=== PATIENT | female | born 1935 | race Caucasian/White ===

== ENCOUNTER → 2016-03-23 | Outpatient (REF) | payer MEDICARE, OTHER ==
[~2016-03-23] MED LIST: ADV250INH INH; AMLO10TA2 PO; BENI40TA3 PO; BUME1TAB26 PO; COMBAER6 INH; METH10TA PO; METO50TA2 PO; OMEP40CA2 PO; PROA1AER INH; VITA-112 PO; [UNRECOGNIZED DRUG - CODE] EXT
[2016-03-23 19:18] LABS: FREE T4 1.38 NG/DL (0.76-1.46)
== END | disposition home or self-care (01) ==
LOC: M SFHCCLAY 06:37
PROVIDERS: ATTEND Family Medicine
DX: E05.90 Thyrotoxicosis, unspecified without thyrotoxic crisis or storm (principal); R63.4 Abnormal weight loss; J44.9 Chronic obstructive pulmonary disease, unspecified

== ENCOUNTER → 2016-04-01 | Outpatient (CLI) | payer MEDICARE, BC ==
--- NOTE | 2016-04-01 19:54 | REP ---
Whole body PET CT scan: Comparison is the chest CT dated 01/31/2016. Whole body PET CT scanning is performed from skull base to the upper thighs. Neck and supraclavicular areas: There are two small uptake foci just inferior to the occiput bilaterally. On the accompanying CT this appears to be artifactual uptake in paravertebral musculature. There is artifactual uptake in the adenoids bilaterally. There is a 2 cm nodule in the right lobe of the thyroid demonstrating hypermetabolic uptake with the standard uptake value measuring 5.0. There is no uptake in the left lobe of the thyroid. Chest: There is hypermetabolic uptake in the patient's known right upper lobe lung mass, the standard uptake value measures 5.9, compatible with neoplasm. There is hypermetabolic uptake in a normal size right hilar lymph node posterior to the right hilus. The standard uptake value measures 4.1, compatible with neoplasm. The lymph node measures 1.3 cm diameter. There is hypermetabolic uptake in a 1 cm nodule medially in the left lower lobe, the standard uptake value measures 6.3, compatible with neoplasm. There is hypermetabolic uptake in a small 5 mm nodule in the left upper lobe, the standard uptake value measuring 2.8, borderline hypermetabolic, likely artifactually low because of a small lesion size. No other hypermetabolic foci are identified in the chest. Abdomen, pelvis and upper thighs: There are no hypermetabolic foci. Artifactual bowel uptake is incidentally noted. The study is performed with 7.8 mCi of F 18 FDG . Signed by Gal Byrnes MD 04/01/2016 07:45 P
== END | disposition home or self-care (01) ==
LOC: M RAD 15:08
PROVIDERS: ATTEND Internal Medicine Pulmonary Disease
DX: C34.11 Malignant neoplasm of upper lobe, right bronchus or lung (principal); R93.8 Abnormal findings on diagnostic imaging of other specified body structures
CPT/HCPCS: 78815; A9552

== ENCOUNTER → 2016-04-22 | Outpatient (REF) | payer MEDICARE, BC | END | disposition home or self-care (01) | LOC: M LAB REF 07:15 | PROVIDERS: ATTEND Internal Medicine Medical Oncology | DX: C34.91 Malignant neoplasm of unspecified part of right bronchus or lung (principal) ==

== ENCOUNTER → 2016-06-03 | Outpatient (REF) | payer MEDICARE, OTHER ==
[2016-06-03 17:16] LABS: FREE T4 1.11 NG/DL (0.76-1.46)
== END ==
LOC: M SFHCCLAY 10:05
PROVIDERS: ATTEND Family Medicine
DX: E05.90 Thyrotoxicosis, unspecified without thyrotoxic crisis or storm (principal)

== ENCOUNTER → 2016-11-04 | Outpatient (CLI) | payer MEDICARE, OTHER ==
[~2016-11-04] MED LIST changes: +BENI40TA26 PO; -BENI40TA3 PO; -METO50TA2 PO; +METO50TA7 PO; -PROA1AER INH; +PROAAER10 INH
--- NOTE | 2016-11-04 11:48 | REP ---
CHEST, TWO VIEWS: Two views of the chest are performed and compared to prior studies most recent of which is 03/10/2016. There is mild enlargement of a right upper lobe nodule at the level of the hilum. A new 4 cm nodule is seen in the left upper lobe just above the level of the hilum. There also appears to be a new nodule in the left retrocardiac region measuring 3.7 cm in diameter. There is mild cardiomegaly. There is calcification and tortuosity of the thoracic aorta. There are degenerative changes of the spine. IMPRESSION: Increased size of right upper lobe nodule. Two new left lung nodules.
== END ==
LOC: M CLY 10:31
PROVIDERS: ATTEND Family Medicine
DX: C34.91 Malignant neoplasm of unspecified part of right bronchus or lung (principal); J44.9 Chronic obstructive pulmonary disease, unspecified

== ENCOUNTER → 2016-11-04 | Outpatient (REF) | payer MEDICARE, BC, OTHER ==
[2016-11-04 18:34] LABS: MEAN CORPUSCULAR HEMOGLOBIN 33.4 pg (27.0-33.0); MEAN CORPUSCULAR HGB CONC 33.3 g/dl (32.0-36.5); MEAN CORPUSCULAR VOLUME 100.2 fl (80.0-96.0); RED CELL DISTRIBUTION WIDTH 13.4 % (11.5-14.5); WHITE BLOOD COUNT 9.2 K/mm3 (4.0-10.0)
[2016-11-04 19:17] LABS: ALBUMIN 3.5 GM/DL (3.2-5.2); ALBUMIN/GLOBULIN RATIO 1.06 (1.00-1.93); ALKALINE PHOSPHATASE 75 U/L (45-117); ALT/SGPT 10 U/L (12-78); ANION GAP 5 MEQ/L (8-16); AST/SGOT 16 U/L (15-37); BILIRUBIN,TOTAL 0.7 MG/DL (0.2-1.0); BLOOD UREA NITROGEN 7 MG/DL (7-18); CALCIUM LEVEL 9.9 MG/DL (8.8-10.2); CARBON DIOXIDE LEVEL 40 MEQ/L (21-32); CHLORIDE LEVEL 92 MEQ/L (98-107); CREATININE FOR GFR 0.77 MG/DL (0.55-1.02); FREE T4 0.91 NG/DL (0.76-1.46); GLOMERULAR FILTRATION RATE > 60.0 (>32); GLUCOSE, FASTING 104 MG/DL (83-110); POTASSIUM SERUM 3.6 MEQ/L (3.5-5.1); SODIUM LEVEL 137 MEQ/L (136-145); TOTAL PROTEIN 6.8 GM/DL (6.4-8.2)
== END ==
LOC: EDBD → M SFHCCLAY 10:11
PROVIDERS: ATTEND Family Medicine
DX: C34.91 Malignant neoplasm of unspecified part of right bronchus or lung (principal); J44.9 Chronic obstructive pulmonary disease, unspecified; E05.90 Thyrotoxicosis, unspecified without thyrotoxic crisis or storm
CPT/HCPCS: 71020; 80053; 84439; 84443; 85027; G0463

== ENCOUNTER → 2017-02-10 | Outpatient (CLI) | payer MEDICARE, OTHER ==
[~2017-02-10] MED LIST changes: +AMIL5TA PO; +FURO40TA2 PO; +IPRASOL4 INH; +K-TA10TA2 PO; +LASI40TA PO; +OLME20TA2 PO; +POTA20TA PO; +TAPA5TAB PO; +VITA100066 PO
--- NOTE | 2017-02-10 13:42 | REP ---
Clinical: Dyspnea. Tachycardia. Lung cancer. Technique: PA and lateral. Comparison: 11/04/2016. Findings: Mediastinum and cardiac silhouette are stable. Diffuse chronic interstitial changes are again identified along with bilateral mid lung opacities similar to prior examination and consistent with a history of lung cancer. Superimposed basilar atelectasis (left greater than right) cannot be excluded. Small effusion cannot be excluded. No pneumothorax. Skeletal structures demonstrate age-related degenerative changes. Impression: Diffuse chronic interstitial changes and stable opacities/masses. Superimposed lower lobe atelectasis cannot be excluded. Signed by Rick Davila MD 02/10/2017 01:33 P
== END ==
LOC: EDBD → M CLY 12:50 → MERGE 12:50
PROVIDERS: ATTEND Nurse Practitioner Family
DX: R00.0 Tachycardia, unspecified (principal); R06.09 Other forms of dyspnea; J98.4 Other disorders of lung

== ENCOUNTER → 2017-02-10 | Outpatient (REF) | payer MEDICARE, OTHER ==
[~2017-02-10] MED LIST changes: -FURO40TA2 PO; -IPRASOL4 INH; -OLME20TA2 PO; -POTA20TA PO; -TAPA5TAB PO; -VITA100066 PO
[2017-02-10 19:55] LABS: BASO # 0.1 10^3/uL (0.0-0.2); BASO % 0.8 % (0.0-1.0); EOS # 0.1 10^3/uL (0.0-0.50); EOS % 1.3 % (0.0-3.0); IMMATURE GRANULOCYTE % 0.3 % (0-0); LYMPH % 11.9 % (24.0-44.0); MEAN CORPUSCULAR HEMOGLOBIN 31.5 pg (27.0-33.0); MEAN CORPUSCULAR HGB CONC 32.6 g/dl (32.0-36.5); MEAN CORPUSCULAR VOLUME 96.7 fl (80.0-96.0); MONO # 0.5 10^3/uL (0.0-0.8); MONO % 6.1 % (0.0-5.0); NEUTROPHILS # 6.4 10^3/uL (1.8-7.7); NEUTROPHILS % 79.6 % (36.0-66.0); PLATELET COUNT, AUTOMATED 486 10^3/uL (150-450); RED CELL DISTRIBUTION WIDTH 13.8 % (11.5-14.5)
[2017-02-10 20:11] LABS: ANION GAP 7 MEQ/L (8-16); BLOOD UREA NITROGEN 9 MG/DL (7-18); CALCIUM LEVEL 9.4 MG/DL (8.8-10.2); CARBON DIOXIDE LEVEL 41 MEQ/L (21-32); CHLORIDE LEVEL 90 MEQ/L (98-107); GLOMERULAR FILTRATION RATE > 60.0 (>32); GLUCOSE, FASTING 119 MG/DL (83-110); SODIUM LEVEL 138 MEQ/L (136-145)
== END ==
LOC: EDBD → M SFHCCLAY 10:36 → MERGE 10:36
PROVIDERS: ATTEND Nurse Practitioner Family
DX: R00.0 Tachycardia, unspecified (principal); R06.09 Other forms of dyspnea; R60.0 Localized edema

== ENCOUNTER 2017-02-12 02:19 | Inpatient (IN) | payer MEDICARE, BC, OTHER ==
[~2017-02-12] VITALS: Ht 152.4 cm; Wt 44.0 kg
[~2017-02-12 02:19] MED LIST changes: -AMIL5TA PO; -K-TA10TA2 PO; -LASI40TA PO
[2017-02-12] MEDS ORDERED: K-TA10TA2 PO (02:37)
[2017-02-12] MEDS ORDERED: LASI40TA PO (02:37)
[2017-02-12] MEDS ORDERED: AMIL5TA PO ×2 (02:37→06:42)
[2017-02-12 03:02] LABS: BASO # 0.1 10^3/uL (0.0-0.2); BASO % 0.7 % (0.0-1.0); EOS # 0.3 10^3/uL (0.0-0.50); EOS % 3.7 % (0.0-3.0); IMMATURE GRANULOCYTE % 0.4 % (0-0); LYMPH # 1.1 10^3/uL (1.5-4.5); LYMPH % 13.3 % (24.0-44.0); MEAN CORPUSCULAR HGB CONC 33.6 g/dl (32.0-36.5); MEAN CORPUSCULAR VOLUME 95.4 fl (80.0-96.0); MONO # 0.6 10^3/uL (0.0-0.8); MONO % 6.6 % (0.0-5.0); NEUTROPHILS # 6.4 10^3/uL (1.8-7.7); NEUTROPHILS % 75.3 % (36.0-66.0); PLATELET COUNT, AUTOMATED 411 10^3/uL (150-450); RED CELL DISTRIBUTION WIDTH 14.1 % (11.5-14.5); WHITE BLOOD COUNT 8.5 10^3/uL (4.0-10.0)
[2017-02-12 03:11] LABS: ANION GAP 7 MEQ/L (8-16); BLOOD UREA NITROGEN 9 MG/DL (7-18); CALCIUM LEVEL 8.9 MG/DL (8.8-10.2); CARBON DIOXIDE LEVEL 39 MEQ/L (21-32); CHLORIDE LEVEL 90 MEQ/L (98-107); CREATININE FOR GFR 0.61 MG/DL (0.55-1.02); GLOMERULAR FILTRATION RATE > 60.0 (>32); GLUCOSE, FASTING 102 MG/DL (83-110); POTASSIUM SERUM 3.4 MEQ/L (3.5-5.1); SODIUM LEVEL 136 MEQ/L (136-145)
[2017-02-12 03:18] LABS: ABG BASE EXCESS 15.1 (-2.0-2.0); ABG HCO3 40.5 MEQ/L (22.0-26.0); ABG PARTIAL PRESSURE CO2 54.3 mmHg (35.0-45.0); ABG PARTIAL PRESSURE O2 61.5 mmHg (75.0-100.0); ABG STANDARD HCO3 38.8 MEQ/L (22.0-26.0); ABG TOTAL CO2 42.1 MEQ/L (23.0-31.0)
[2017-02-12] MEDS ORDERED: methylPREDNISolone INJ 125 MG/2 ML VIAL (J2930) IV ONE (03:30)
[2017-02-12] MEDS ORDERED: ISOVUE-370 76% 100ML VIAL (Q9967) As Ordered ONE (03:38)
[2017-02-12] MEDS ORDERED: FUROSEMIDE 40 MG/4 ML VIAL (J1940) IV ONE (04:45)
[2017-02-12 04:48] LABS: ALKALINE PHOSPHATASE 83 U/L (45-117); ALT/SGPT 10 U/L (12-78); AST/SGOT 12 U/L (7-37); BILIRUBIN,DIRECT 0.1 MG/DL (0.0-0.2); BILIRUBIN,TOTAL 0.4 MG/DL (0.2-1.0)
[2017-02-12 04:49] LABS: ALBUMIN 2.8 GM/DL (3.2-5.2); ALBUMIN/GLOBULIN RATIO 0.85 (1.00-1.93); TOTAL PROTEIN 6.1 GM/DL (6.4-8.2)
--- NOTE | 2017-02-12 04:50 | REPUSA ---
CLINICAL HISTORY: Dyspnea, exclude PE. TECHNIQUE: Multiple incremental axial, coronal and oblique images are obtained from the thoracic inle t to the upper abdomen. Intravenous contrast material was administered as per pulmonary embolism prot ocol. COMMENTS: Small left pleural effusion. Passive atelectatic airspace disease in the left lower lobe. Minimal right pleural effusion. Right upper lobe mass measuring 3.8x3.9 cm. Left upper lobe mass measuring 4.5x4.1 cm. Left lower lobe mass measuring 5.3x4.7 cm. Emphysema. 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 Scattered emphysematous blebs. Mildly enlarged mediastinal and hilar lymph nodes with the largest measuring 1.6 cm. Mild hepatomegaly without tracheal deviation/airway narrowing. Mild cardiomegaly. 4.5 cm well-defined hypodense lesion of the spleen. Mild hepatomegaly. There is excellent opacification of pulmonary arterial system without evidence for pulmonary embolism . Aorta is of normal caliber without evidence for dissection or aneurysm. Images of the upper abdomen demonstrate no evidence of adrenal mass. The bony structures are free of lytic or blastic lesions. Multilevel degenerative changes are seen in volving the visualized thoracolumbar spine. Scattered calcifications are seen involving the aorta and major branches compatible with atherosclero sis. IMPRESSION: No evidence for pulmonary embolism. Cardiomegaly. Bilateral pulmonary masses. Small pleural effusions. Splenic mass. Mediastinal and hilar lymphadenopathy. Lymphangitis carcinomatosis. Thank you for your kind referral of this patient.
[2017-02-12] MEDS ORDERED: PROAAER10 INH (06:36)
[2017-02-12] MEDS ORDERED: COMBAER6 INH (06:36)
[2017-02-12] MEDS ORDERED: ADV250INH INH (06:42)
[2017-02-12] MEDS ORDERED: FURO40TA2 PO (06:42)
[2017-02-12] MEDS ORDERED: TAPA5TAB PO (06:42)
[2017-02-12] MEDS ORDERED: POTA20TA PO (06:42)
[2017-02-12] MEDS ORDERED: OLME20TA2 PO (06:42)
[2017-02-12] MEDS ORDERED: VITA100066 PO (06:42)
[2017-02-12] MEDS ORDERED: OMEP40CA2 PO (06:42)
[2017-02-12] MEDS ORDERED: IPRASOL4 INH (06:42)
[2017-02-12] MEDS ORDERED: POTASSIUM CHLORIDE 10 MEQ SR TABLET PO ONE (06:45)
[2017-02-12] MEDS ORDERED: ALBUTEROL SULFATE 2.5 MG/0.5 ML INH NEB SOLN INH PRN (06:45)
--- NOTE | 2017-02-12 06:53 | HPEPDOC ---
[facility] Medical History & Physical Date of Admission Feb 12, 2017 Primary Care Physician: Harsh Santana MD Attending Physician: Harsh Santana MD History and Physical PRIMARY CARE PROVIDER: Dr. Harsh Santana ATTENDING: Dr. 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 Patient states she's been following up with her primary care physician and recently had her diuretics titrated, especially in the setting of hypokalemia. She also noted that her thyroid function tests were abnormal and had her thyroid medications changed as well. Over the past few weeks, she has been having progression of her shortness of breath especially with exertion. She has also noticed increase in weight gain as well as lower extremity edema that's progressively worsened. She denies cough/chest pain. No nausea/vomiting/abdominal pain. Patient has a history of stage IV lung cancer diagnosed 1 year ago, and states she does not want chemotherapy or any treatment. PAST MEDICAL HISTORY: As per HPI PAST SURGICAL HISTORY: Appendectomy, back surgery, right shoulder surgery, right ganglion cyst, left knee arthroscopy, esophageal polyps, colon polyps SOCIAL HISTORY: History of 1 pack per day tobacco abuse 60 years, denies alcohol or illicit drug use. FAMILY HISTORY: Noncontributory ALLERGIES: Please see below. REVIEW OF SYSTEMS: HEENT: Denies sore throat/headache CARDIOVASCULAR: Denies chest pain/palpitations RESPIRATORY: + shortness of breath. no cough GASTROINTESTINAL: denies nausea/vomiting GENITOURINARY: Denies dysuria/urinary urgency. MUSCULOSKELETAL: Denies myalgias/arthralgias NEUROLOGICAL: Denies any focal weakness HOME MEDICATIONS: Please see below. PHYSICAL EXAMINATION: Vitals: (see below) General: No acute distress, laying comfortably in bed. HEENT: Moist mucous membranes. Neck: No JVD or lymphadenopathy Cardiac: RRR, 3/6 systolic murmur loudest at left lower sternal border Pulm: Coarse crackles and diminished breath sounds b/l left greater than the right. No wheezing, rhonchi Abd: NT/+ BS. Mildly distended. Ext: 2+ pitting edema bilateral lower extremities. No cyanosis. Distal pulses intact. LABORATORY DATA: See below. IMAGING: CTA chest 02/11/17 IMPRESSION: No evidence for pulmonary embolism. Cardiomegaly. Bilateral pulmonary masses. Small pleural effusions. Splenic mass. Mediastinal and hilar lymphadenopathy. Lymphangitis carcinomatosis. MICROBIOLOGY: Please see below. ASSESSMENT/PLAN: 1. Acute decompensated heart failure- unknown EF. Has been diuresed outpatient however still significantly edematous. Has been having dyspnea on exertion outpatient. We'll continue with Lasix IV every 8 hours, echocardiogram pending. Certainly has hypoalbuminemia contributing third spacing. Will need to consider temporary use of acetazolamide if metabolic alkalosis worsens. Denies CP/palpitations. 2. Hypokalemia- replaced 3. Hyperthyroidism- on methimazole. TSH within normal limits 4. History of COPD on 2 L home O2 at home continue nebs 5. Stage IV lung cancer with metastases to the spleen, bilateral pulmonary masses, lymphangitis carcinomatosis- states she does not want any intervention 6. Lower extremity edema- likely secondary to hypoalbuminemia, CHF exacerbation. We'll also rule out DVT with lower extremity ultrasound DVT prophylaxis- enoxaparin Prognosis guarded Patient will be followed by Dr. Harsh Santana starting 02/12/17 at 7 AM. Vital Signs Vital Signs Date Time Temp Pulse Resp B/P (MAP) Pulse Ox O2 Delivery O2 Flow Rate FiO2 02/12/17 05:02 147/67 (93) 02/12/17 05:00 94 97 02/12/17 03:21 Nasal Cannula 4.0 02/12/17 02:28 97.7 18 Laboratory Data Labs 24H Laboratory Tests 2 02/12/17 02:36: Immature Granulocyte % (Auto) 0.4H, White Blood Count 8.5, Red Blood Count 3.06L , Hemoglobin 9.8L, Hematocrit 29.2L, Mean Corpuscular Volume 95.4, Mean Corpuscular Hemoglobin 32.0, Mean Corpuscular Hemoglobin Concent 33.6, Red Cell Distribution Width 14.1, Platelet Count 411, Neutrophils (%) (Auto) 75.3H, Lymphocytes (%) (Auto) 13.3L, Monocytes (%) (Auto) 6.6H, Eosinophils (%) (Auto) 3.7H, Basophils (%) (Auto) 0.7, Neutrophils # (Auto) 6.4, Lymphocytes # (Auto) 1.1L, Monocytes # (Auto) 0.6, Eosinophils # (Auto) 0.3, Basophils # (Auto) 0.1, Immature Granulocyte # (Auto) 0.0, Nucleated Red Blood Cells % (auto) 0.0, Anion Gap 7L, Glomerular Filtration Rate > 60.0, Lactic Acid Level 1.0, Blood Urea Nitrogen 9, Creatinine 0.61, Sodium Level 136, Potassium Level 3.4L, Chloride Level 90L, Carbon Dioxide Level 39H, Calcium Level 8.9, Aspartate Amino Transf (AST/SGOT) 12, Alanine Aminotransferase (ALT/SGPT) 10L, Alkaline Phosphatase 83, Total Bilirubin 0.4, Direct Bilirubin 0.1, Total Creatine Kinase 32, Creatine Kinase MB 1.0, Creatine Kinase MB Relative Index 3.12, Troponin I < 0.02, XP-Hak-O-Type Natriuretic Peptide 2727H, Total Protein 6.1L, Albumin 2.8L, Albumin/Globulin Ratio 0.85L, Thyroid Stimulating Hormone (TSH) 1.290 02/12/17 03:07: Blood Gas Bicarbonate Standard 38.8H, Arterial Blood pH 7.490H, Arterial Blood Partial Pressure CO2 54.3H, Arterial Blood Partial Pressure O2 61.5L, Arterial Blood Total CO2 42.1H, Arterial Blood HCO3 40.5H, Arterial Blood Base Excess 15.1H, Arterial Blood Oxygen Saturation 92.4L CBC/BMP Laboratory Tests 02/12/17 02:36 Red Blood Count 3.06 L, Mean Corpuscular Volume 95.4, Mean Corpuscular Hemoglobin 32.0, Mean Corpuscular Hemoglobin Concent 33.6, Red Cell Distribution Width 14.1, Neutrophils (%) (Auto) 75.3 H, Lymphocytes (%) (Auto) 13.3 L, Monocytes (%) (Auto) 6.6 H, Eosinophils (%) (Auto) 3.7 H, Basophils (%) (Auto) 0.7, Neutrophils # (Auto) 6.4, Lymphocytes # (Auto) 1.1 L, Monocytes # ( Auto) 0.6, Eosinophils # (Auto) 0.3, Basophils # (Auto) 0.1, Calcium Level 8.9 Microbiology Microbiology 02/12/17 Blood Culture, Received Pending Allergies Coded Allergies: Indapamide (Unverified Allergy, Mild, 02/12/17) Nicotine (Unverified Allergy, Mild, RASH, 02/12/17) ELSY LY MD Feb 12, 2017 06:53
--- NOTE | 2017-02-12 08:11 | REP ---
Clinical: Cough. Dyspnea. Comparison: 02/10/2017. Findings: Diffuse chronic interstitial changes and fibrosis are again appreciated along with bilateral mass lesions. Superimposed left basilar atelectasis cannot be excluded. No definite effusion. No pneumothorax. Mediastinum and cardiac silhouette stable. Impression: Diffuse chronic stable findings. Cannot exclude superimposed basilar atelectasis Signed by Rick Davila MD 02/12/2017 08:02 A
[2017-02-12] MEDS: ADVAIR HFA 115/21MCG INHALER INH SCH ×2 (08:12→22:02)
--- NOTE | 2017-02-12 08:16 | REP ---
Clinical: Bilateral pain and swelling . Technique: Mackey scale and color Doppler evaluation using linear high frequency transducer. Findings: Ultrasound examination of the right and left lower extremity deep venous structures from the common femoral vein to the popliteal vein demonstrates normal compressibility flow and wave patterns in response to respiration and augmentation. There is no evidence for deep venous thrombosis. Fluid collection in the left popliteal fossa measures 2.8 x 1.0 x 1.8 cm compatible with Macdonald's cyst. Impression: No evidence for deep venous thrombosis bilaterally. Left Macdonald's cyst. Signed by Rick Davila MD 02/12/2017 08:07 A
--- NOTE | 2017-02-12 08:48 | IPNPDOC ---
Subjective Date Seen The patient was seen on 02/12/17. Subjective Chief Complaint/HPI The patient is a 81-year-old female admitted with a reason for visit of Acute Chf. Constitutional: Reports: Weakness, Fatigue, Denies: Chills, Night Sweats Skin: Denies: Rash Pulmonary: Reports: Dyspnea, Cough, Denies: Pleuritic Chest Pain Cardiovascular: Reports: Orthopnea, Denies: Chest Pain, Palpitations Gastrointestinal: Denies: Nausea, Vomiting, Abdominal Pain Hematologic: Denies: Bleeding Excessively Psych: Reports: Mood Normal Objective Physical Examination General Exam: Positive: Alert Eye Exam: Positive: PERRLA ENT Exam: Positive: Atraumatic Neck Exam: Positive: Supple, Negative: thyromegaly Chest Exam: Positive: Rales, Rhonchi, Diminished Heart Exam: Positive: Rate Normal, Regular Rhythm Abdomen Exam: Positive: Normal bowel sounds, Soft, Negative: Tenderness Extremity Exam: Positive: Clubbing, Edema Skin Exam: Negative: Rash Psych Exam: Positive: Mental status NL Assessment /Plan Problems (1) Acute CHF Status: Acute Response to Treatment: Improving Problem Text: Echo ordered. Suspect combination of PAH and diastolic dysfunction. continue ordered diuretic regimen for now. (2) Stage 4 lung cancer Status: Chronic Response to Treatment: Worse Problem Text: at time of dx, patient elected not to proceed with any treatment. discussed hospice but patient felt she wasn't ready. STILL wants to be full code despite known lethal diagnosis. (3) Hyperthyroidism Status: Chronic Response to Treatment: Stable Problem Text: on methimazole, TSH in range. (4) Hypokalemia Status: Acute Response to Treatment: Improving Problem Text: she had developed diarrhea that she attributed to side effect from oral K replacement before admission so started on amiloride to try to reduce K wasting. Plan/VTE VTE Prophylaxis Ordered?: Yes Plan Diet: Continue Current Therapy: PT, OT Anticipated Discharge: Home With Services VS, I&O, 24H, [facility] Vital Signs/I&O Vital Signs Date Time Temp Pulse Resp B/P (MAP) Pulse Ox O2 Delivery O2 Flow Rate FiO2 02/12/17 07:24 96.8 90 20 149/63 (91) 96 Nasal Cannula 4.0 Laboratory Data 24H LABS Laboratory Tests 2 02/12/17 02:36: Immature Granulocyte % (Auto) 0.4H, White Blood Count 8.5, Red Blood Count 3.06L , Hemoglobin 9.8L, Hematocrit 29.2L, Mean Corpuscular Volume 95.4, Mean Corpuscular Hemoglobin 32.0, Mean Corpuscular Hemoglobin Concent 33.6, Red Cell Distribution Width 14.1, Platelet Count 411, Neutrophils (%) (Auto) 75.3H, Lymphocytes (%) (Auto) 13.3L, Monocytes (%) (Auto) 6.6H, Eosinophils (%) (Auto) 3.7H, Basophils (%) (Auto) 0.7, Neutrophils # (Auto) 6.4, Lymphocytes # (Auto) 1.1L, Monocytes # (Auto) 0.6, Eosinophils # (Auto) 0.3, Basophils # (Auto) 0.1, Immature Granulocyte # (Auto) 0.0, Nucleated Red Blood Cells % (auto) 0.0, Anion Gap 7L, Glomerular Filtration Rate > 60.0, Lactic Acid Level 1.0, Blood Urea Nitrogen 9, Creatinine 0.61, Sodium Level 136, Potassium Level 3.4L, Chloride Level 90L, Carbon Dioxide Level 39H, Calcium Level 8.9, Aspartate Amino Transf (AST/SGOT) 12, Alanine Aminotransferase (ALT/SGPT) 10L, Alkaline Phosphatase 83, Total Bilirubin 0.4, Direct Bilirubin 0.1, Total Creatine Kinase 32, Creatine Kinase MB 1.0, Creatine Kinase MB Relative Index 3.12, Troponin I < 0.02, BK-Snr-T-Type Natriuretic Peptide 2727H, Total Protein 6.1L, Albumin 2.8L, Albumin/Globulin Ratio 0.85L, Thyroid Stimulating Hormone (TSH) 1.290 02/12/17 03:07: Blood Gas Bicarbonate Standard 38.8H, Arterial Blood pH 7.490H, Arterial Blood Partial Pressure CO2 54.3H, Arterial Blood Partial Pressure O2 61.5L, Arterial Blood Total CO2 42.1H, Arterial Blood HCO3 40.5H, Arterial Blood Base Excess 15.1H, Arterial Blood Oxygen Saturation 92.4L CBC/BMP Laboratory Tests 02/12/17 02:36 Red Blood Count 3.06 L, Mean Corpuscular Volume 95.4, Mean Corpuscular Hemoglobin 32.0, Mean Corpuscular Hemoglobin Concent 33.6, Red Cell Distribution Width 14.1, Neutrophils (%) (Auto) 75.3 H, Lymphocytes (%) (Auto) 13.3 L, Monocytes (%) (Auto) 6.6 H, Eosinophils (%) (Auto) 3.7 H, Basophils (%) (Auto) 0.7, Neutrophils # (Auto) 6.4, Lymphocytes # (Auto) 1.1 L, Monocytes # ( Auto) 0.6, Eosinophils # (Auto) 0.3, Basophils # (Auto) 0.1, Calcium Level 8.9 Microbiology Microbiology 02/12/17 Blood Culture, Received Pending Harsh Santana MD Feb 12, 2017 08:48
--- NOTE | 2017-02-12 09:46 | ECGEPIP ---
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
[2017-02-12] MEDS: VITAMIN D 1,000 INTERNATIONAL UNITS TABLET PO SCH (10:23)
[2017-02-12] MEDS: OMEPRAZOLE 20 MG CAP PO SCH (10:23)
[2017-02-12] MEDS: ENOXAPARIN 40 MG/0.4 ML SYRINGE (J1650) SC SCH (10:24)
[2017-02-12] MEDS: OLMESARTAN MEDOXOMIL 20 MG TAB (BENICAR) PO SCH (11:32)
[2017-02-12] MEDS: aMILoride 5 MG TAB PO SCH (11:52)
[2017-02-12] MEDS: METOPROLOL TART 50 MG TAB PO SCH ×2 (12:40→21:06)
[2017-02-12] MEDS: FUROSEMIDE 40 MG/4 ML VIAL (J1940) IV SCH ×2 (13:45→21:07)
[2017-02-12 16:00] VITALS: BP 132/68
[2017-02-12 19:55] VITALS: BP 152/80
[2017-02-12 20:00] VITALS: BP 103/48
[2017-02-13 00:24] LABS: BLOOD UREA NITROGEN 11 MG/DL (7-18); CHLORIDE LEVEL 89 MEQ/L (98-107); CREATININE FOR GFR 0.61 MG/DL (0.55-1.02); GLOMERULAR FILTRATION RATE > 60.0 (>32); GLUCOSE, FASTING 108 MG/DL (83-110); MAGNESIUM LEVEL 1.7 MG/DL (1.8-2.4); POTASSIUM SERUM 3.4 MEQ/L (3.5-5.1); SODIUM LEVEL 136 MEQ/L (136-145)
[2017-02-13 00:59] LABS: ANION GAP 5 MEQ/L (8-16); CARBON DIOXIDE LEVEL 42 MEQ/L (21-32)
[2017-02-13] MEDS: FUROSEMIDE 40 MG/4 ML VIAL (J1940) IV SCH ×3 (05:20→21:56)
[2017-02-13 06:00] VITALS: BP 130/62
[2017-02-13 06:09] LABS: MEAN CORPUSCULAR HEMOGLOBIN 31.6 pg (27.0-33.0); MEAN CORPUSCULAR HGB CONC 33.1 g/dl (32.0-36.5); MEAN CORPUSCULAR VOLUME 95.6 fl (80.0-96.0); PLATELET COUNT, AUTOMATED 410 10^3/uL (150-450); RED CELL DISTRIBUTION WIDTH 14.3 % (11.5-14.5); WHITE BLOOD COUNT 8.9 10^3/uL (4.0-10.0)
[2017-02-13 06:23] LABS: ANION GAP 6 MEQ/L (8-16); BLOOD UREA NITROGEN 11 MG/DL (7-18); CALCIUM LEVEL 9.2 MG/DL (8.8-10.2); CARBON DIOXIDE LEVEL 43 MEQ/L (21-32); CHLORIDE LEVEL 89 MEQ/L (98-107); CREATININE FOR GFR 0.69 MG/DL (0.55-1.02); GLOMERULAR FILTRATION RATE > 60.0 (>32); GLUCOSE, FASTING 99 MG/DL (83-110); MAGNESIUM LEVEL 1.8 MG/DL (1.8-2.4); POTASSIUM SERUM 3.2 MEQ/L (3.5-5.1); SODIUM LEVEL 138 MEQ/L (136-145)
--- NOTE | 2017-02-13 07:18 | ECGEPIP ---
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
[2017-02-13] MEDS ORDERED: POTASSIUM CHLORIDE 10 MEQ SR TABLET PO ONE (08:15)
[2017-02-13] MEDS: aMILoride 5 MG TAB PO SCH (08:29)
[2017-02-13] MEDS: VITAMIN D 1,000 INTERNATIONAL UNITS TABLET PO SCH (08:29)
[2017-02-13] MEDS: OLMESARTAN MEDOXOMIL 20 MG TAB (BENICAR) PO SCH (08:29)
[2017-02-13] MEDS: ENOXAPARIN 40 MG/0.4 ML SYRINGE (J1650) SC SCH (08:30)
[2017-02-13] MEDS: METOPROLOL TART 50 MG TAB PO SCH ×2 (08:30→21:54)
--- NOTE | 2017-02-13 08:57 | IPNPDOC ---
Subjective Date Seen The patient was seen on 02/13/17. Subjective Chief Complaint/HPI The patient is a 81-year-old female admitted with a reason for visit of Acute Chf. Events since last encounter Patient states she feels no better today. She is complaining that she is urinating frequently - I reassured her that this is expected due to lasix. Constitutional: Denies: Chills, Fever, Malaise ENT: Denies: Head Aches Pulmonary: Reports: Dyspnea, Denies: Cough Cardiovascular: Denies: Chest Pain, Palpitations, Lt Headedness Gastrointestinal: Denies: Nausea, Vomiting, Abdominal Pain, Diarrhea Musculoskeletal: Denies: Neck Pain, Back Pain Neurological: Denies: Weakness, Numbness Psych: Reports: Mood Normal Objective Physical Examination General Exam: Positive: Alert Eye Exam: Positive: PERRLA ENT Exam: Positive: Atraumatic Neck Exam: Positive: Supple, Negative: thyromegaly Chest Exam: Positive: Rales, Diminished, Negative: Clear to auscultation, Normal air movement, Rhonchi, Wheezing Heart Exam: Positive: Rate Normal, Regular Rhythm, Negative: Murmurs Abdomen Exam: Positive: Normal bowel sounds, Soft, Negative: Tenderness Extremity Exam: Positive: Clubbing, Edema Skin Exam: Negative: Rash Psych Exam: Positive: Mental status NL Assessment /Plan Problems (1) Positive blood culture Status: Acute Problem Text: 1 blood culture positive for gram positive cocci in clusters; second blood culture from day of admission still pending. - No obvious source, normal WBCs, and patient afebrile points to likely contaminant - Long discussion held with patient on 02/13 regarding goals of care, whether she desires aggressive management of problems with antibiotics vs. [employer]; at this point she wants to continue with normal care but is considering [employer] in the near future after she discusses this with her family - Repeat blood cultures x2 now - Start vancomycin (2) Acute CHF Status: Acute Response to Treatment: Improving Problem Text: Suspect combination of PAH and diastolic dysfunction. - Net neg ~1.1L yesterday, net neg 780 today - Continue Lasix 40 mg Q8H - Echo pending (3) Stage 4 lung cancer Status: Chronic Response to Treatment: Worse Problem Text: At time of dx, patient elected not to proceed with any treatment. - Patient confirmed she still wants to be full code until she discusses this with her family (4) Hyperthyroidism Status: Chronic Response to Treatment: Stable Problem Text: on methimazole, TSH in normal range. (5) Hypokalemia Status: Acute Response to Treatment: Improving Problem Text: She had developed diarrhea that she attributed to side effect from oral K replacement before admission so started on amiloride to try to reduce K wasting. - Despite starting amiloride, potassium is lower today at 3.2; oral potassium replacement restarted Plan/VTE VTE Prophylaxis Ordered?: Yes Plan Diet: Continue Current Therapy: PT, OT Anticipated Discharge: Home With Services VS, I&O, 24H, [facility] Vital Signs/I&O Vital Signs Date Time Temp Pulse Resp B/P (MAP) Pulse Ox O2 Delivery O2 Flow Rate FiO2 02/13/17 08:30 72 130/62 02/13/17 06:00 98.4 15 95 Room Air 02/12/17 21:30 2.0 I&O- Last 24 Hours up to 6 AM 02/14/17 06:00 Output Total 500 ml Balance -500 ml Laboratory Data 24H LABS Laboratory Tests 2 02/12/17 23:40: Anion Gap 5L, Glomerular Filtration Rate > 60.0, Blood Urea Nitrogen 11, Creatinine 0.61, Sodium Level 136, Potassium Level 3.4L, Chloride Level 89L, Carbon Dioxide Level 42H, Calcium Level 9.0, Magnesium Level 1.7L 02/13/17 05:34: Anion Gap 6L, Glomerular Filtration Rate > 60.0, Blood Urea Nitrogen 11, Creatinine 0.69, Sodium Level 138, Potassium Level 3.2L, Chloride Level 89L, Carbon Dioxide Level 43H, Calcium Level 9.2, Magnesium Level 1.8, Nucleated Red Blood Cells % (auto) 0.0 CBC/BMP Laboratory Tests 02/12/17 23:40 Calcium Level 9.0 02/13/17 05:34 Calcium Level 9.2, Red Blood Count 2.97 L, Mean Corpuscular Volume 95.6, Mean Corpuscular Hemoglobin 31.6, Mean Corpuscular Hemoglobin Concent 33.1, Red Cell Distribution Width 14.3 Microbiology Microbiology 02/13/17 Blood Culture, Received Pending 02/13/17 Blood Culture, Received Pending 02/12/17 Blood Culture, Received Pending 02/12/17 Blood Culture - Preliminary, Resulted HIRA CLINTON MD Feb 13, 2017 08:57
[2017-02-13] MEDS: VANCOMYCIN HCL 1,000 MG, VIAL MATE ADAPTER 1 EACH in D5W 250 ML IV SCH ×2 (09:59→21:49)
[2017-02-13 10:00] VITALS: BP 122/60
[2017-02-13] MEDS: ADVAIR HFA 115/21MCG INHALER INH SCH ×2 (11:22→20:01)
[2017-02-13 14:00] VITALS: BP 122/60
[2017-02-13 18:00] VITALS: BP 115/56
[2017-02-13] MEDS: POTASSIUM CHLORIDE 10 MEQ SR TABLET PO SCH (21:55)
[2017-02-13 22:00] VITALS: BP 106/53
[2017-02-14 02:00] VITALS: BP 128/60
[2017-02-14] MEDS: FUROSEMIDE 40 MG/4 ML VIAL (J1940) IV SCH ×4 (05:27→20:57)
[2017-02-14 05:53] LABS: MEAN CORPUSCULAR HEMOGLOBIN 31.6 pg (27.0-33.0); MEAN CORPUSCULAR VOLUME 95.7 fl (80.0-96.0); PLATELET COUNT, AUTOMATED 427 10^3/uL (150-450); RED CELL DISTRIBUTION WIDTH 14.1 % (11.5-14.5); WHITE BLOOD COUNT 9.7 10^3/uL (4.0-10.0)
[2017-02-14 06:00] VITALS: BP 128/78
[2017-02-14 06:08] LABS: BLOOD UREA NITROGEN 11 MG/DL (7-18); CALCIUM LEVEL 8.8 MG/DL (8.8-10.2); CARBON DIOXIDE LEVEL 42 MEQ/L (21-32); CHLORIDE LEVEL 89 MEQ/L (98-107); CREATININE FOR GFR 0.65 MG/DL (0.55-1.02); GLOMERULAR FILTRATION RATE > 60.0 (>32); GLUCOSE, FASTING 100 MG/DL (83-110)
[2017-02-14 06:19] LABS: ANION GAP 5 MEQ/L (8-16); SODIUM LEVEL 136 MEQ/L (136-145)
[2017-02-14 06:21] LABS: POTASSIUM SERUM 3.9 MEQ/L (3.5-5.1)
[2017-02-14] MEDS: ADVAIR HFA 115/21MCG INHALER INH SCH ×2 (06:28→20:16)
[2017-02-14] MEDS: VITAMIN D 1,000 INTERNATIONAL UNITS TABLET PO SCH (08:50)
[2017-02-14] MEDS: POTASSIUM CHLORIDE 10 MEQ SR TABLET PO SCH ×2 (08:50→20:48)
[2017-02-14] MEDS: OLMESARTAN MEDOXOMIL 20 MG TAB (BENICAR) PO SCH (08:51)
[2017-02-14] MEDS: METOPROLOL TART 50 MG TAB PO SCH ×2 (08:51→20:56)
[2017-02-14] MEDS: aMILoride 5 MG TAB PO SCH (08:51)
[2017-02-14] MEDS: ENOXAPARIN 40 MG/0.4 ML SYRINGE (J1650) SC SCH (08:51)
[2017-02-14] MEDS: VANCOMYCIN HCL 1,000 MG, VIAL MATE ADAPTER 1 EACH in D5W 250 ML IV SCH ×2 (08:52→20:48)
[2017-02-14 10:00] VITALS: BP 122/58
--- NOTE | 2017-02-14 13:35 | IPNPDOC ---
Subjective Date Seen The patient was seen on 02/14/17. Subjective Chief Complaint/HPI The patient is a 81-year-old female admitted with a reason for visit of Acute Chf. Events since last encounter Patient states she feels about the same today as yesterday; she states she coughed up a small amount of blood 4-5 times overnight. She feels that the swelling in her legs has improved. Constitutional: Denies: Chills, Fever Pulmonary: Denies: Dyspnea, Cough Cardiovascular: Reports: Chest Pain (chronic related to lung cancer, at baseline), Denies: Palpitations Gastrointestinal: Denies: Nausea, Vomiting, Abdominal Pain Genitourinary: Denies: Dysuria Neurological: Denies: Weakness, Numbness, Confusion Objective Physical Examination General Exam: Positive: Alert Eye Exam: Positive: PERRLA ENT Exam: Positive: Atraumatic Neck Exam: Positive: Supple, Negative: thyromegaly Chest Exam: Positive: Rales (faint bibasilar), Diminished, Negative: Clear to auscultation, Normal air movement, Rhonchi, Wheezing Heart Exam: Positive: Rate Normal, Regular Rhythm, Negative: Murmurs Abdomen Exam: Positive: Normal bowel sounds, Soft, Negative: Tenderness Extremity Exam: Positive: Clubbing, Edema (1+ ankle and lower leg edema) Skin Exam: Negative: Rash Psych Exam: Positive: Mental status NL Assessment /Plan Problems (1) Positive blood culture Status: Acute Problem Text: 2 blood cultures positive for gram positive cocci in clusters on 02/12 - Repeat blood cultures from 02/13/17 NG x24 hours - No obvious source; patient remains afebrile with normal WBCs - Long discussion held with patient on 02/13 regarding goals of care, whether she desires aggressive management of problems with antibiotics vs. SU[employer]; at this point she wants to continue with normal care but is considering SU[employer] in the near future after she discusses this with her family - Continue vancomycin for now; if initial culture comes back as likely skin contaminant and repeat cultures remain negative, can d/c vanc (2) Acute CHF Status: Acute Response to Treatment: Improving Problem Text: Suspect combination of PAH and diastolic dysfunction. - Net neg ~3L since admission; symptomatically improving - Continue Lasix 40 mg Q8H - Echo pending (3) Stage 4 lung cancer Status: Chronic Response to Treatment: Worse Problem Text: At time of dx, patient elected not to proceed with any treatment. (4) Hyperthyroidism Status: Chronic Response to Treatment: Stable Problem Text: on methimazole, TSH in normal range. (5) Hypokalemia Status: Acute Response to Treatment: Improving Problem Text: She had developed diarrhea that she attributed to side effect from oral K replacement before admission so started on amiloride to try to reduce K wasting. - Despite starting amiloride, potassium is lower today at 3.2; oral potassium replacement restarted with 20 mEq BID Plan/VTE VTE Prophylaxis Ordered?: Yes Plan Diet: Continue Current Therapy: PT, OT Anticipated Discharge: Home With Services VS, I&O, 24H, [facility] Vital Signs/I&O Vital Signs Date Time Temp Pulse Resp B/P (MAP) Pulse Ox O2 Delivery O2 Flow Rate FiO2 02/14/17 08:51 88 128/78 02/14/17 06:00 98.1 18 94 Nasal Cannula 2.0 I&O- Last 24 Hours up to 6 AM 02/15/17 06:00 Intake Total 570 ml Output Total 1050 ml Balance -480 ml Laboratory Data 24H LABS Laboratory Tests 2 02/14/17 05:18: Nucleated Red Blood Cells % (auto) 0.0, Anion Gap 5L, Glomerular Filtration Rate > 60.0, Blood Urea Nitrogen 11, Creatinine 0.65, Sodium Level 136, Potassium Level 3.9#, Chloride Level 89L, Carbon Dioxide Level 42H, Calcium Level 8.8 CBC/BMP Laboratory Tests 02/14/17 05:18 Red Blood Count 3.04 L, Mean Corpuscular Volume 95.7, Mean Corpuscular Hemoglobin 31.6, Mean Corpuscular Hemoglobin Concent 33.0, Red Cell Distribution Width 14.1, Calcium Level 8.8 Microbiology Microbiology 02/13/17 Blood Culture - Preliminary, Resulted No growth after 24 hours . All specim... 02/13/17 Blood Culture - Preliminary, Resulted No growth after 24 hours . All specim... 02/12/17 Blood Culture - Preliminary, Resulted No Growth after 48 hours. All Specime... 02/12/17 Blood Culture - Preliminary, Resulted HIRA CLINTON MD Feb 14, 2017 13:34
[2017-02-14 14:00] VITALS: BP 100/50
[2017-02-14] MEDS: ACETAMINOPHEN TAB 650MG DOSE (2X325MG) PO PRN (15:30)
[2017-02-14 18:00] VITALS: BP 114/61
[2017-02-14 22:00] VITALS: BP 103/55
[2017-02-15 02:00] VITALS: BP 106/52
[2017-02-15] MEDS: FUROSEMIDE 40 MG/4 ML VIAL (J1940) IV SCH (05:26)
[2017-02-15 06:00] VITALS: BP 122/63
--- NOTE | 2017-02-15 06:48 | ECHO ---
DATE OF PROCEDURE: 02/14/2017 AGE: 81 GENDER: Female REFERRING PHYSICIAN: Dr. Madhu Live. HEIGHT: 60 inches. WEIGHT: 112 pounds. BODY SURFACE AREA: 1.46 sq m. INPATIENT: [address] [place] [address] room 4223 INDICATION: Congestive heart failure (CHF). MEASUREMENTS: 2D MEASUREMENTS: RV - 4.3 cm LV- 4.7 cm Septum - 1.0 cm Posterior wall - 1.0 cm Aortic root: 2.7 cm LA - 3.6 cm LVEF - 65% DOPPLER MEASUREMENTS: AV - 1.8 m/s LVOT - 1.1 m/s LVOT diameter - 2.0 cm MV-E: 110 A: 123 EA ratio 0.9 Early mitral deacceleration time - 215 ms E-prime - 6 A-prime - 10 E/E prime ratio - 18.3 PV - 0.9 m/s Pulmonary artery acceleration time - 95 ms RVSP - 60 mmHg IVC - 1.9 cm COMMENTS: Normal sinus rhythm with PACs and PVCs. Left atrial size was at least mildly dilated considering the size of the patient's aortic root (these should be equivalent). Normal left ventricular size. Right heart chambers were at least mildly dilated. LV wall thickness was normal. On real-time imaging from the parasternal and apical projections, wall motion was symmetrical and hyperkinetic. Mildly thickened mitral annulus but normal leaflet thickness and excursion with no posterior systolic buckling. Three equal size aortic cusps with mildly thickened cusp edges but adequate cusp separation. Normal aortic root size. No apparent intracardiac mass or pericardial effusion. Color flow Doppler study taken from the parasternal and apical projection showed trace aortic, mild mitral, and mild to moderate tricuspid insufficiency. Guided continuous wave Doppler of her aortic valve showed a normal peak systolic velocity against LV outflow tract obstruction. Pulsed and continuous wave Doppler of her LV inflow tract taken from the apical four-chamber projection showed normal diastolic filling velocities against mitral stenosis. However, there was more prominent late diastolic/atrial dependent filling pattern. Diastolic dysfunction was further confirmed by a prolonged early mitral deceleration time and tissue Doppler of her mitral annulus. Her current estimated mean left atrial pressure was mildly increased at 18 mmHg. Pulsed and continuous wave Doppler of her pulmonary trunk showed a normal peak systolic velocity against RV outflow tract obstruction. Her pulmonary artery acceleration time was abbreviated consistent with an elevated pulmonary vascular resistance. Guided continuous wave Doppler of her tricuspid valve allowed our estimation of her right ventricular systolic pressure (severely increased). Her inferior vena cava was upper limits of normal to slightly dilated with absent respiratory collapse consistent with an elevated central venous pressure of at least 15 - 20 mmHg. CONCLUSIONS: Normal left ventricular size, wall thickness and wall motion. Borderline left atrial enlargement with Doppler evidence of an impairment of LV diastolic function with only slightly elevated mean left atrial pressure. Mildly dilated right heart chambers with Doppler evidence of severe pulmonary hypertension. IVC size upper limits of normal to mildly dilated with absent respiratory collapse consistent with right heart failure. Aortic valvular sclerosis without stenosis and only trace insufficiency. Mild degenerative changes of the mitral valvular apparatus with mild insufficiency.
[2017-02-15 06:51] LABS: MEAN CORPUSCULAR HEMOGLOBIN 30.9 pg (27.0-33.0); MEAN CORPUSCULAR HGB CONC 32.4 g/dl (32.0-36.5); MEAN CORPUSCULAR VOLUME 95.2 fl (80.0-96.0); PLATELET COUNT, AUTOMATED 483 10^3/uL (150-450); RED CELL DISTRIBUTION WIDTH 14.2 % (11.5-14.5); WHITE BLOOD COUNT 9.9 10^3/uL (4.0-10.0)
[2017-02-15 07:04] LABS: CALCIUM LEVEL 9.1 MG/DL (8.8-10.2); CREATININE FOR GFR 0.95 MG/DL (0.55-1.02); MAGNESIUM LEVEL 1.6 MG/DL (1.8-2.4); POTASSIUM SERUM 4.5 MEQ/L (3.5-5.1)
[2017-02-15] MEDS: ADVAIR HFA 115/21MCG INHALER INH SCH ×2 (07:45→20:44)
--- NOTE | 2017-02-15 08:20 | IPNPDOC ---
Subjective Date Seen The patient was seen on 02/15/17. Subjective Chief Complaint/HPI The patient is a 81-year-old female admitted with a reason for visit of Acute Chf. Events since last encounter Pt this morning notes improvement in her breathing at rest and with ambulation, she does however still feel more SOB with ambulation. She c/o frequent urination. She has no new concerns. General: Denies: Fatigue Constitutional: Denies: Chills, Fever Pulmonary: Denies: Dyspnea, Cough Cardiovascular: Denies: Chest Pain, Palpitations Gastrointestinal: Denies: Nausea, Vomiting, Diarrhea Neurological: Denies: Weakness Psych: Reports: Mood Normal Objective Physical Examination General Exam: Positive: Alert, Cooperative ENT Exam: Positive: Atraumatic Neck Exam: Positive: Supple Chest Exam: Positive: Rales (very faint bibasilar), Diminished, Negative: Clear to auscultation, Normal air movement, Rhonchi, Wheezing Heart Exam: Positive: Rate Normal, Regular Rhythm, Negative: Murmurs Abdomen Exam: Positive: Normal bowel sounds, Soft, Negative: Tenderness Extremity Exam: Positive: Clubbing, Edema (trace B pedal edema) Skin Exam: Negative: Rash Psych Exam: Positive: Mental status NL Assessment /Plan Problems (1) Acute on chronic diastolic (congestive) heart failure Status: Acute Response to Treatment: Stable, Improving Discussed With: Nurse, Patient Problem Specific Plan: Monitor Clinically, Repeat Labs Problem Text: ECHO confirms diastolic dysfunction. Pt has rec IV Lasix 40 mg q8h since admission, will change to PO today. She is put out over 3 L since admission. She is maintaining her sats on 2 LPM, which is her home O2 usage. Cont URBAN diet. (2) Acute CHF Status: Acute Response to Treatment: Improving Problem Text: 02/14 Suspect combination of PAH and diastolic dysfunction. - Net neg ~3L since admission; symptomatically improving - Continue Lasix 40 mg Q8H - Echo pending (3) Positive blood culture Status: Resolved Problem Text: 02/15 -Initial culture with Staph warneri, likely skin contaminant , will d/c Vanco. 02/14 03/16 blood cultures positive for gram positive cocci in clusters on 02/12 - Repeat blood cultures from 02/13/17 NG x24 hours - No obvious source; patient remains afebrile with normal WBCs - Long discussion held with patient on 02/13 regarding goals of care, whether she desires aggressive management of problems with antibiotics vs. [employer]ARD REFEREE; at this point she wants to continue with normal care but is considering [employer] REFEREE in the near future after she discusses this with her family - Continue vancomycin for now; if initial culture comes back as likely skin contaminant and repeat cultures remain negative, can d/c vanc (4) Stage 4 lung cancer Status: Chronic Response to Treatment: Worse Problem Text: At time of dx, patient elected not to proceed with any treatment. (5) Hyperthyroidism Status: Chronic Response to Treatment: Stable Problem Text: on methimazole, TSH in normal range. (6) Hypokalemia Status: Acute Response to Treatment: Improving Problem Text: She had developed diarrhea that she attributed to side effect from oral K replacement before admission so started on amiloride to try to reduce K wasting. - Despite starting amiloride, potassium is lower today at 3.2; oral potassium replacement restarted with 20 mEq BID Plan/VTE VTE Prophylaxis Ordered?: Yes Plan Diet: Continue Current Therapy: PT, OT Anticipated Discharge: Home With Services Anticipate d/c 02/16 if safe per PT. VS, I&O, 24H, [facility] Vital Signs/I&O Vital Signs Date Time Temp Pulse Resp B/P (MAP) Pulse Ox O2 Delivery O2 Flow Rate FiO2 02/15/17 06:00 97.3 89 20 122/63 (82) 93 Nasal Cannula 2.0 I&O- Last 24 Hours up to 6 AM 02/16/17 06:00 Output Total 600 ml Balance -600 ml Laboratory Data 24H LABS Laboratory Tests 2 02/15/17 06:35: Nucleated Red Blood Cells % (auto) 0.0, Anion Gap 8, Glomerular Filtration Rate 60.0, Blood Urea Nitrogen 15, Creatinine 0.95, Sodium Level 135L, Potassium Level 4.5, Chloride Level 88L, Carbon Dioxide Level 39H, Calcium Level 9.1, Magnesium Level 1.6L CBC/BMP Laboratory Tests 02/15/17 06:35 Red Blood Count 3.53 L, Mean Corpuscular Volume 95.2, Mean Corpuscular Hemoglobin 30.9, Mean Corpuscular Hemoglobin Concent 32.4, Red Cell Distribution Width 14.2, Calcium Level 9.1 Microbiology Microbiology 02/13/17 Blood Culture - Preliminary, Resulted No growth after 24 hours . All specim... 02/13/17 Blood Culture - Preliminary, Resulted No growth after 24 hours . All specim... 02/12/17 Blood Culture - Preliminary, Resulted No Growth after 48 hours. All Specime... 02/12/17 Blood Culture - Final, Complete Staphylococcus Warneri PACO ELIAS PA-C Feb 15, 2017 08:20
[2017-02-15] MEDS: VITAMIN D 1,000 INTERNATIONAL UNITS TABLET PO SCH (09:27)
[2017-02-15] MEDS: POTASSIUM CHLORIDE 10 MEQ SR TABLET PO SCH ×2 (09:27→21:49)
[2017-02-15] MEDS: ENOXAPARIN 40 MG/0.4 ML SYRINGE (J1650) SC SCH (09:27)
[2017-02-15] MEDS: OMEPRAZOLE 20 MG CAP PO SCH (09:28)
[2017-02-15] MEDS: METOPROLOL TART 50 MG TAB PO SCH ×2 (09:28→21:50)
[2017-02-15] MEDS: OLMESARTAN MEDOXOMIL 20 MG TAB (BENICAR) PO SCH (09:28)
[2017-02-15] MEDS: aMILoride 5 MG TAB PO SCH (09:28)
[2017-02-15 10:00] VITALS: BP 123/61
[2017-02-15 14:00] VITALS: BP 107/62
[2017-02-15] MEDS: FUROSEMIDE 40 MG TAB PO SCH (16:45)
[2017-02-15] MEDS: ACETAMINOPHEN TAB 650MG DOSE (2X325MG) PO PRN (21:51)
[2017-02-15 22:00] VITALS: BP 120/58
[2017-02-16 02:00] VITALS: BP 143/63
[2017-02-16 02:30] VITALS: BP 118/57
[2017-02-16 06:00] VITALS: BP 120/58
[2017-02-16 06:30] LABS: MEAN CORPUSCULAR HEMOGLOBIN 31.8 pg (27.0-33.0); MEAN CORPUSCULAR HGB CONC 33.1 g/dl (32.0-36.5); MEAN CORPUSCULAR VOLUME 96.1 fl (80.0-96.0); PLATELET COUNT, AUTOMATED 440 10^3/uL (150-450); RED CELL DISTRIBUTION WIDTH 14.1 % (11.5-14.5); WHITE BLOOD COUNT 9.1 10^3/uL (4.0-10.0)
[2017-02-16 06:47] LABS: ANION GAP 3 MEQ/L (8-16); BLOOD UREA NITROGEN 17 MG/DL (7-18); CALCIUM LEVEL 8.9 MG/DL (8.8-10.2); CARBON DIOXIDE LEVEL 37 MEQ/L (21-32); CHLORIDE LEVEL 94 MEQ/L (98-107); CREATININE FOR GFR 0.93 MG/DL (0.55-1.02); GLOMERULAR FILTRATION RATE > 60.0 (>32); GLUCOSE, FASTING 102 MG/DL (83-110); SODIUM LEVEL 134 MEQ/L (136-145)
[2017-02-16 06:52] LABS: POTASSIUM SERUM 5.2 MEQ/L (3.5-5.1)
[2017-02-16] MEDS: ADVAIR HFA 115/21MCG INHALER INH SCH ×2 (07:54→21:00)
[2017-02-16] MEDS: FUROSEMIDE 40 MG TAB PO SCH (09:00)
--- NOTE | 2017-02-16 10:56 | IPNPDOC ---
Subjective Date Seen The patient was seen on 02/16/17. Subjective Chief Complaint/HPI The patient is a 81-year-old female admitted with a reason for visit of Acute Chf. Events since last encounter Breathing has improved today. able to ambulate to BR independently - feels a little lightheaded Constitutional: Denies: Chills, Fever Pulmonary: Reports: Dyspnea, Denies: Cough Cardiovascular: Denies: Chest Pain, Palpitations, Orthopnea Gastrointestinal: Denies: Nausea, Vomiting, Abdominal Pain, Diarrhea, Constipation Objective Physical Examination General Exam: Positive: Alert, Cooperative ENT Exam: Positive: Atraumatic Neck Exam: Positive: Supple Chest Exam: Positive: Diminished, Negative: Clear to auscultation, Normal air movement, Rhonchi, Wheezing Heart Exam: Positive: Rate Normal, Regular Rhythm, Negative: Murmurs Abdomen Exam: Positive: Normal bowel sounds, Soft, Negative: Tenderness Extremity Exam: Negative: Edema Psych Exam: Positive: Mental status NL Assessment /Plan Problems (1) Acute on chronic diastolic (congestive) heart failure Status: Acute Response to Treatment: Stable, Improving Discussed With: Nurse, Patient Problem Specific Plan: Monitor Clinically, Repeat Labs Problem Text: ECHO confirms diastolic dysfunction. Pt had rec IV Lasix 40 mg q8h on admission, switched to po 02/15. Put out over 3 L since admission. She is maintaining her sats on 2 LPM, which is her home O2 usage. Na+ has dropped slightly and Bp is borderline low and pt slightly lightheaded - suspect slightly dry now. D/C benicar & amiloride Hold Lasix this am D/C K+, Benicar and amiloride due to hyperkalemia this morning Cont URBAN diet. 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 she [facility] but did not feel ready for this at that time Patient considering hospice now May want to have them re-visit her in hospital (4) Positive blood culture Status: Resolved Problem Text: 02/15 -Initial culture with Staph warneri, likely skin contaminant , will d/c Vanco. 02/14 1/2 blood cultures positive for gram positive cocci in clusters on 02/12 - Repeat blood cultures from 02/13/17 NG x24 hours - No obvious source; patient remains afebrile with normal WBCs - Long discussion held with patient on 02/13 regarding goals of care, whether she desires aggressive management of problems with antibiotics vs. [employer] CAPTAIN; at this point she wants to continue with normal care but is considering [employer] CAPTAIN in the near future after she discusses this with her family - Continue vancomycin for now; if initial culture comes back as likely skin contaminant and repeat cultures remain negative, can d/c vanc (5) Hyperthyroidism Status: Chronic Response to Treatment: Stable Problem Text: on methimazole, TSH in normal range. (6) Hypokalemia Status: Resolved Problem Text: She had developed diarrhea that she attributed to side effect from oral K replacement before admission so started on amiloride to try to reduce K wasting. - Despite starting amiloride, potassium is lower today at 3.2; oral potassium replacement restarted with 20 mEq BID Plan/VTE VTE Prophylaxis Ordered?: Yes (Lovenox) Plan Diet: Continue Current Therapy: PT, OT Anticipated Discharge: Home With Services VS, I&O, [facility] Vital Signs/I&O Vital Signs Date Time Temp Pulse Resp B/P (MAP) Pulse Ox O2 Delivery O2 Flow Rate FiO2 02/16/17 09:13 Nasal Cannula 2.0 02/16/17 06:00 98.1 55 19 120/58 (78) 96 I&O- Last 24 Hours up to 6 AM 02/17/17 06:00 Intake Total 200 ml Output Total 550 ml Balance -350 ml Laboratory Data 24H LABS Laboratory Tests 2 02/16/17 06:12: Nucleated Red Blood Cells % (auto) 0.0, Anion Gap 3L, Glomerular Filtration Rate > 60.0, Blood Urea Nitrogen 17, Creatinine 0.93, Sodium Level 134L, Potassium Level 5.2H, Chloride Level 94L, Carbon Dioxide Level 37H, Calcium Level 8.9 CBC/BMP Laboratory Tests 02/16/17 06:12 Red Blood Count 3.30 L, Mean Corpuscular Volume 96.1 H, Mean Corpuscular Hemoglobin 31.8, Mean Corpuscular Hemoglobin Concent 33.1, Red Cell Distribution Width 14.1, Calcium Level 8.9 Microbiology Microbiology 02/13/17 Blood Culture - Preliminary, Resulted No Growth after 72 hours. All specime... 02/13/17 Blood Culture - Preliminary, Resulted No Growth after 72 hours. All specime... 02/12/17 Blood Culture - Preliminary, Resulted No Growth after 72 hours. All specime... 02/12/17 Blood Culture - Final, Complete Staphylococcus Warneri RENNY GARCIA PA-C Feb 16, 2017 10:56
[2017-02-16] MEDS: VITAMIN D 1,000 INTERNATIONAL UNITS TABLET PO SCH (11:01)
[2017-02-16 11:04] VITALS: BP 116/78
[2017-02-16] MEDS: METOPROLOL TART 50 MG TAB PO SCH (11:04)
[2017-02-16] MEDS: ENOXAPARIN 40 MG/0.4 ML SYRINGE (J1650) SC SCH (11:37)
[2017-02-16 11:41] VITALS: BP 116/78
[2017-02-16 14:00] VITALS: BP 105/56
[2017-02-16] MEDS ORDERED: SCOPOLAMINE 1.5 MG TRANSDERMAL TD PRN (17:45)
[2017-02-16] MEDS ORDERED: ATROPINE SULFATE 1% OP SOLN 2 ML BTL SL PRN (17:45)
[2017-02-16] MEDS ORDERED: ACETAMINOPHEN 650 MG SUPP PR PRN (17:45)
[2017-02-16] MEDS ORDERED: LORazepam 1 MG TAB PO PRN (17:45)
[2017-02-16] MEDS ORDERED: FLEET ENEMA PR PRN (17:45)
[2017-02-16] MEDS ORDERED: MORPHINE 10MG/0.5ML ORAL CONCENTRATE SOLUTION U/D SL PRN (17:45)
[2017-02-16] MEDS ORDERED: ONDANSETRON 4 MG ORAL DISINTEGRATING TAB (S0181) PO PRN (17:45)
[2017-02-17 06:31] LABS: MEAN CORPUSCULAR HEMOGLOBIN 31.5 pg (27.0-33.0); MEAN CORPUSCULAR HGB CONC 32.7 g/dl (32.0-36.5); MEAN CORPUSCULAR VOLUME 96.2 fl (80.0-96.0); PLATELET COUNT, AUTOMATED 450 10^3/uL (150-450); WHITE BLOOD COUNT 9.3 10^3/uL (4.0-10.0)
[2017-02-17 06:50] LABS: ANION GAP 3 MEQ/L (8-16); BLOOD UREA NITROGEN 14 MG/DL (7-18); CALCIUM LEVEL 9.4 MG/DL (8.8-10.2); CARBON DIOXIDE LEVEL 37 MEQ/L (21-32); CHLORIDE LEVEL 93 MEQ/L (98-107); GLOMERULAR FILTRATION RATE > 60.0 (>32); GLUCOSE, FASTING 98 MG/DL (83-110); POTASSIUM SERUM 4.7 MEQ/L (3.5-5.1); SODIUM LEVEL 133 MEQ/L (136-145)
[2017-02-17] MEDS: ADVAIR HFA 115/21MCG INHALER INH SCH (07:55)
[2017-02-17 09:09] VITALS: BP 128/72
--- NOTE | 2017-02-17 09:22 | IPNPDOC ---
Subjective Date Seen The patient was seen on 02/17/17. Subjective Chief Complaint/HPI The patient is a 81-year-old female admitted with a reason for visit of Acute Chf. Events since last encounter Breathig significantly improved since admission. Ambulated to independently. Eating better Constitutional: Denies: Chills, Fever Pulmonary: Reports: Dyspnea (improved), Denies: Cough Cardiovascular: Denies: Chest Pain, Palpitations, Orthopnea Gastrointestinal: Denies: Nausea, Vomiting, Abdominal Pain, Diarrhea, Constipation Objective Physical Examination General Exam: Positive: Alert, Cooperative ENT Exam: Positive: Atraumatic Neck Exam: Positive: Supple Chest Exam: Positive: Normal air movement, Negative: Clear to auscultation, Rhonchi, Wheezing, Diminished Heart Exam: Positive: Rate Normal, Regular Rhythm, Negative: Murmurs Abdomen Exam: Positive: Normal bowel sounds, Soft, Negative: Tenderness Extremity Exam: Negative: Edema Psych Exam: Positive: Mental status NL Assessment /Plan Problems (1) Acute on chronic diastolic (congestive) heart failure Status: Acute Response to Treatment: Stable, Improving Discussed With: Nurse, Patient Problem Specific Plan: Monitor Clinically, Repeat Labs Problem Text: 02/17 - ECHO confirms diastolic dysfunction. Pt had rec IV Lasix 40 mg q8h on admission , switched to po 02/15. Put out over 3 L since admission. REsp status improved. Oxygenation good on 2L NC. (On this chronically at home) Benicar and Amiloride held due to low BP and hyperkalemia Switch to Lasix 40 mg po dialy and monitor BP trend Cont URBAN diet. 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 she [facility] but did not feel ready for this at that time Patient considering hospice now Hospice consulted to see while in hospital Probably would suggest d/c home with hospice (4) Positive blood culture Status: Resolved Problem Text: 02/15 -Initial culture with Staph warneri, likely skin contaminant , will d/c Vanco. 02/14 03/16 blood cultures positive for gram positive cocci in clusters on 02/12 - Repeat blood cultures from 02/13/17 NG x24 hours - No obvious source; patient remains afebrile with normal WBCs - Long discussion held with patient on 02/13 regarding goals of care, whether she desires aggressive management of problems with antibiotics vs. FIRST LEVELER; at this point she wants to continue with normal care but is considering FIRST LEVELER in the near future after she discusses this with her family - Continue vancomycin for now; if initial culture comes back as likely skin contaminant and repeat cultures remain negative, can d/c vanc (5) Hyperthyroidism Status: Chronic Response to Treatment: Stable Problem Text: on methimazole, TSH in normal range. (6) Hypokalemia Status: Resolved Problem Text: She had developed diarrhea that she attributed to side effect from oral K replacement before admission so started on amiloride to try to reduce K wasting. - Despite starting amiloride, potassium is lower today at 3.2; oral potassium replacement restarted with 20 mEq BID Plan/VTE VTE Prophylaxis Ordered?: Yes (Lovenox) Plan Diet: Continue Current Therapy: PT, OT Anticipated Discharge: Home With Services VS, I&O, 24H, [facility] Vital Signs/I&O Vital Signs Date Time Temp Pulse Resp B/P (MAP) Pulse Ox O2 Delivery O2 Flow Rate FiO2 02/17/17 09:09 98.2 84 18 128/72 (90) 95 Nasal Cannula 2.0 Laboratory Data 24H LABS Laboratory Tests 2 02/17/17 06:12: Nucleated Red Blood Cells % (auto) 0.0, Anion Gap 3L, Glomerular Filtration Rate > 60.0, Blood Urea Nitrogen 14, Creatinine 0.80, Sodium Level 133L, Potassium Level 4.7, Chloride Level 93L, Carbon Dioxide Level 37H, Calcium Level 9.4 CBC/BMP Laboratory Tests 02/17/17 06:12 Red Blood Count 3.40 L, Mean Corpuscular Volume 96.2 H, Mean Corpuscular Hemoglobin 31.5, Mean Corpuscular Hemoglobin Concent 32.7, Red Cell Distribution Width 14.0, Calcium Level 9.4 Microbiology Microbiology 02/13/17 Blood Culture - Preliminary, Resulted No Growth after 72 hours. All specime... 02/13/17 Blood Culture - Preliminary, Resulted No Growth after 72 hours. All specime... 02/12/17 Blood Culture - Preliminary, Resulted No Growth after 72 hours. All specime... 02/12/17 Blood Culture - Final, Complete Staphylococcus Warneri RENNY GARCIA PA-C Feb 17, 2017 09:22
[2017-02-17] MEDS ORDERED: MORP20SO3 SL (10:18)
[2017-02-17] MEDS ORDERED: LASI40TA PO (10:18)
[2017-02-17] MEDS ORDERED: ATIV1TAB7 PO (10:18)
[2017-02-17] MEDS ORDERED: ATRO1OPD SL (10:18)
[2017-02-17 10:51] VITALS: BP 124/70
--- NOTE | 2017-02-17 11:43 | DSES ---
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 She has been having her diuretics adjusted, but has noticed increased shortness of breath and weight gain as well as lower extremity edema. Past medical history is significant for stage IV lung cancer diagnosed the year ago, declined chemotherapy and radiation at that time, met with hospice in the spring and was not ready to sign on for hospice at that time. Also a history of diastolic congestive heart failure, hyperthyroidism on methimazole, history of COPD on 2 liters nasal cannula chronically and stage IV lung cancer with metastasis to the spleen, bilateral pulmonary masses, and lymphangitis carcinomatosis. HOSPITAL COURSE: 1. The patient was admitted for bilateral pleural effusions and decompensated diastolic congestive heart failure. She had an echocardiogram that confirmed diastolic congestive heart failure as well as severe pulmonary hypertension and right heart failure. The patient was given IV Lasix initially and switched over to oral Lasix. She diuresed over 3 liters on admission. Her blood pressure became a little soft and her sodium had drifted down slightly suggesting that she was slightly dry. Her diuretics at that time were all discontinued as well as her Benicar and potassium supplements due to having developed some hyperkalemia. Her potassium level normalized, blood pressure has improved. At this point, she has decided to go home with hospice and will be discharged home with Lasix 40 mg daily, which I think is an adequate dose to help prevent her from developing fluid overload and help to keep her comfortable. 2. Stage IV lung cancer. As above, she has decided to go home with hospice and the usual hospice medications have been prescribed. 3. COPD. She is chronically on oxygen, all of her regular inhalers and nebulizers will continue upon discharge. DISPOSITION: She is stable to be discharged home with hospice. Family was present. Dr. Weathers met with them and Medical Order for Life-Sustaining Treatment (MOLST) forms were completed and hospice is ready to take her home today. She will go home on atropine ophthalmic drops one drop sublingual every 2 hours as needed for terminal secretions, Lasix 40 mg daily, lorazepam 1 mg every 2 hours as needed for anxiety, morphine 4 mg every 2 hours as needed for severe pain, albuterol and ipratropium nebulizers, Advair Diskus, oxygen 2 liters nasal cannula. DISCHARGE DIAGNOSES: 1. Acute on chronic diastolic congestive heart failure. 2. Right her heart failure. 3. Stage IV lung cancer with metastasis to the spleen. 4. Hyperthyroidism. 5. Hypokalemia.
== END 2017-02-17 11:55 | disposition hospice, home (50) | DRG 292 ==
LOC: M ED 02:19 → EDBD 02:19 → M ED INP 06:19 → M PCU 14:39 → M MSPAV 19:51
PROVIDERS: ADMIT Internal Medicine; ATTEND Family Medicine
DX: I11.0 Hypertensive heart disease with heart failure (principal); C34.90 Malignant neoplasm of unspecified part of unspecified bronchus or lung; C78.89 Secondary malignant neoplasm of other digestive organs; C80.0 Disseminated malignant neoplasm, unspecified; I50.33 Acute on chronic diastolic (congestive) heart failure; J98.4 Other disorders of lung; I27.29 Other secondary pulmonary hypertension; I50.811 Acute right heart failure; J44.9 Chronic obstructive pulmonary disease, unspecified; F17.210 Nicotine dependence, cigarettes, uncomplicated; E05.90 Thyrotoxicosis, unspecified without thyrotoxic crisis or storm; E87.6 Hypokalemia; Z88.8 Allergy status to other drugs, medicaments and biological substances; Z99.81 Dependence on supplemental oxygen; Z79.899 Other long term (current) drug therapy

== ENCOUNTER → 2017-03-10 | Outpatient (REF) | payer MEDICARE, OTHER | LOC: M LAB REF 16:36 | DX: C34.11 Malignant neoplasm of upper lobe, right bronchus or lung (principal); C78.89 Secondary malignant neoplasm of other digestive organs; C77.1 Secondary and unspecified malignant neoplasm of intrathoracic lymph nodes; I50.32 Chronic diastolic (congestive) heart failure; J44.9 Chronic obstructive pulmonary disease, unspecified; H35.30 Unspecified macular degeneration | CPT/HCPCS: 81001 ==